=== PATIENT | female | born 1990 | race Caucasian/White ===

== ENCOUNTER 2018-12-13 06:10 | Day surgery (SDC) | payer OTHER ==
[~2018-12-13] VITALS: Ht 154.9 cm; Wt 73.5 kg
[2018-12-13 06:39] VITALS: BP 120/70
[2018-12-13 11:46] VITALS: BP 112/82
== END 2018-12-13 11:30 | disposition home or self-care (01) ==
LOC: DS 06:10 → OR 08:30 → DS 08:30
PROVIDERS: Obstetrics & Gynecology
PROC: 0UBC7ZZ Excision of Cervix, Via Natural or Artificial Opening (ICD-10-PCS; principal; 2018-12-13 08:30)
DX: N72 Inflammatory disease of cervix uteri (principal); N87.9 Dysplasia of cervix uteri, unspecified; E66.9 Obesity, unspecified; Z68.31 Body mass index [BMI] 31.0-31.9, adult
CPT/HCPCS: C1758; J0690; J2250; J2405; J3010; J7120; Q0162